=== PATIENT | female | born 1955 | race Hispanic/Latino ===

== ENCOUNTER 2016-07-27 06:05 | Emergency (ER) | payer OTHER ==
[2016-07-27] MEDS ORDERED: IPRATROPIUM 0.5MG/ALBUTEROL 2.5MG INH SOL UD 3ML (DUONEB)(J7620) As Ordered ONE (07:45)
--- NOTE | 2016-07-27 08:13 | REP ---
Chest x-ray: Two views. History: Cough and shortness of breath. Comparison study May 26, 2014. Findings: The heart is mildly enlarged unchanged from the comparison study. Cardiothoracic ratio measures 15.7 cm over 28.7 cm. The aorta is somewhat tortuous. Pulmonary vasculature is not increased. Pleural angles are sharp. There are degenerative changes in the thoracic spine. No infiltrate is seen. Impression: Mild cardiomegaly unchanged. Otherwise no acute disease. Signed by Nabil Bird MD 07/27/2016 08:47 A
--- NOTE | 2016-07-27 08:18 | EDDOCDS ---
Physician Documentation [facility] Name: Lety Mederos Age: 60 yrs Sex: Female : 1955 Arrival Date: 07/27/2016 Time: 06:05 Bed I4 / M4 Private MD: Disposition: 07/27/16 08:08 Discharged to Home/Self Care. Impression: Acute upper respiratory infection, unspecified, Shortness of breath, Cough. - Condition is Stable. - Discharge Instructions: Shortness of Breath, Upper Respiratory Infection, Adult, Cough, Adult, Wimt-rn-Yuke. - Prescriptions for Iophen C- NR 10-100 mg/5 mL Oral liquid - take 10 milliliter by ORAL route at bedtime As needed may cause drowiness. only take at bedtime.; 120 milliliter. Zithromax Z- Steve 250 mg Oral Tablet - take 1 tablet by ORAL route as directed for 5 days Day 1- take two tablets once. Day 2, 3, 4 , 5 take one tablet once daily.; 6 tablet. benzonatate 200 mg Oral Capsule - take 1 capsule by ORAL route 3 times per day As needed do not chew; 30 capsule. - Medication Reconciliation, Local Pharmacy Hours form. - Follow up: Emergency Department; When: As needed; Reason: Worsening of conditions. Follow up: Private Physician; When: 2 - 3 days; Reason: Wound/Symptom Recheck, Recheck today's complaints, Continuance of care. - Problem is new. - Symptoms have improved. Historical: - Allergies: PENICILLINS (Rash); - PMHx: Diabetes - NIDDM: controlled; Hypercholesterolemia; - PSHx: Carpal Tunnel Repair- Bilateral; brain surgery; - Social history: Smoking status: Patient states was never smoker of tobacco. No barriers to communication noted, The patient speaks fluent Slovenian, Speaks appropriately for age. - Family history: Not pertinent. - : The pt / caregiver states he / she is not on anticoagulants. Home medication list is obtained from the patient. - Exposure Risk Screening:: None identified. Vital Signs: 07/27 06:27 BP 160 / 97; Pulse 90; Resp 16; Temp 98.8(T); Pulse Ox 95% on R/A; Weight 88.45 kg / cz 195 lbs; Height 5 ft. 1 in. (154.94 cm); 08:15 BP 136 / 86; Pulse 92; Resp 18; Temp 98.6(O); Pulse Ox 95% on R/A; Pain 7/10; kr3 06:27 Body Mass Index 36.84 (88.45 kg, 154.94 cm) cz MDM: 07:22 Call Respiratory ordered. dt4 07:22 Albuterol-Ipratropium 3 ml Inhalation once ordered. dt4 07:22 Call Respiratory complete. kr3 07:23 Chest, 2 View (pa\E\lat) Ordered. EDMS 07:24 Financial registration complete. lg 07:49 [facility] Payment Agreement was scanned into [employer] and attached to record. lg Administered Medications: 07:47 Drug: Albuterol-Ipratropium 3 ml [ipratropium-albuterol 0.5 mg-3 mg(2.5 mg base)/3 mL kt1 nebulization soln (3 mL)] Route: Inhalation; 07:56 Follow up: Response: Nebulizer completed kt1 Signatures: Dispatcher [employer] EDMS Jimi Vargas RN RN Conor Huynh, Chris Reg lg Marybel Waite,RN RN kr3 Dominique Fox, PALuisC PA-C dt4 Charissa Shahid kt1 The chart was reviewed and I authenticate all verbal orders and agree with the evaluation and treatment provided.Attachments: 07:49 [facility] Payment Agreement lg MTDD
--- NOTE | 2016-07-27 08:18 | EDDOCDS ---
Nurse's Notes [facility] Name: Lety Mederos Age: 60 yrs Sex: Female : 1955 Arrival Date: 07/27/2016 Time: 06:05 Bed I4 / M4 Private MD: Diagnosis: Acute upper respiratory infection, unspecified;Shortness of breath;Cough Presentation: 07/27 06:21 Presenting complaint: Patient states: has been ill with URI symptoms since [facility] fever cough URI symptoms bilateral earaches, coughing up blood. Adult Sepsis Screening: The patient does not have new or worsening altered mentation. Patient's respiratory rate is less than 22. Systolic blood pressure is greater than 100. Patient has a qSOFA score of 0- Negative Sepsis Screen. Suicide/Homicide risk assessment- the patient denies having any suicidal and/or homicidal ideations and does not present with any other emotional, behavioral or mental health complaints. Status: Patient is not a student support services director or dependent. Transition of care: patient was not received from another setting of care. 06:21 Acuity: MICKIE Level 3 cz 06:21 Method Of Arrival: Walkin/Carried/Asstd cz Triage Assessment: 06:27 General: Appears uncomfortable. Pain: Location: chest Pain currently is 6 out of 10 on cz a pain scale. Pt Declines HIV testing. Historical: - Allergies: PENICILLINS (Rash); - PMHx: Diabetes - NIDDM: controlled; Hypercholesterolemia; - PSHx: Carpal Tunnel Repair- Bilateral; brain surgery; - Social history: Smoking status: Patient states was never smoker of tobacco. No barriers to communication noted, The patient speaks fluent Faroese, Speaks appropriately for age. - Family history: Not pertinent. - : The pt / caregiver states he / she is not on anticoagulants. Home medication list is obtained from the patient. - Exposure Risk Screening:: None identified. Screenin:16 Screening information is obtained from the patient. Fall risk: No risks identified. kr3 Assistance ADL's: requires no assistance with activities of daily living. Abuse/DV Screen: The patient / caregiver reports he/she is: not in a situation that causes fear, pain or injury. Nutritional screening: No deficits noted. Advance Directives: Currently, there is no health care proxy. home support is adequate. Assessment: 07:14 General: Appears comfortable, Behavior is appropriate for age, cooperative. Pain: kr3 Location: all over body. Neurological: Level of Consciousness is awake, alert. EENT: Reports ear pain and throat pain. Respiratory: Respiratory effort is even, unlabored, Breath sounds are coarse bilaterally. Reports cough that is pain with cough pain with respiration. Derm: Skin is normal. 08:16 Reassessment: Patient states symptoms have not improved. Pain: Location: chest Pain kr3 currently is 7 out of 10 on a pain scale. Quality of pain is described as tightness. Respiratory: Airway is patent Respiratory effort is even. Derm: Skin is normal. Vital Signs: 06:27 BP 160 / 97; Pulse 90; Resp 16; Temp 98.8(T); Pulse Ox 95% on R/A; Weight 88.45 kg; cz Height 5 ft. 1 in. (154.94 cm); 08:15 BP 136 / 86; Pulse 92; Resp 18; Temp 98.6(O); Pulse Ox 95% on R/A; Pain 7/10; kr3 06:27 Body Mass Index 36.84 (88.45 kg, 154.94 cm) cz Vitals: 06:27 Log In Time: July 27, 2016 at 06:07. cz ED Course: 06:06 Patient visited by Fanny Ware Reg. hs2 06:06 Patient moved to Waiting hs2 06:26 Triage Initiated cz 06:29 Patient moved to Pre RCE cz 07:03 Pt greeted and oriented to ED. Patient advised of names of staff involved in care, jam1 location of call cortés, wait times and NPO status. Patient has correct armband on for positive identification. Bed in low position. Call light in reach. Side rails up X 1. Adult w/ patient. Door closed. 07:04 Patient moved to I4 / M4 dls 07:12 Dominique Fox PA-C is PHCP. dt4 07:12 Yaima Rea MD is Attending Physician. dt4 07:12 Patient visited by Dominique Fox PA-C. dt4 07:15 The patient / caregiver is instructed regarding the plan of care and ED course. kr3 Accompanied by Family Member, Patient has correct armband on for positive identification. Placed in gown. Call light in reach. 07:49 [facility] Payment Agreement was scanned into [employer] and attached to record. lg 08:15 No IV's were initiated during this patient's visit. No procedures done that require kr3 assistance. Administered Medications: 07:47 Drug: Albuterol-Ipratropium 3 ml [ipratropium-albuterol 0.5 mg-3 mg(2.5 mg base)/3 mL kt1 nebulization soln (3 mL)] Route: Inhalation; 07:56 Follow up: Response: Nebulizer completed kt1 RT: 07:49 Initial Med Neb Given as ordered Patient was instructed and evaluated on procedure. kt1 Respiratory: Breath sounds are diminished bilaterally. Order Results: There are currently no results for this order. Outcome: 08:08 Discharge ordered by Provider. dt4 08:15 Discharge Assessment: patient administered narcotics - no. The following High Risk kr3 Discharge criteria are identified: None. Discharged to home ambulatory, with family. Condition: stable. Discharge instructions given to patient, Instructed on discharge instructions, follow up and referral plans. medication usage, no driving heavy equipment, no drinking with medication, Demonstrated understanding of instructions, medications, Pt was receptive of discharge instructions/ teaching. Prescriptions given X 3. No special radiology studies were completed. Property sent home with patient. 08:17 Patient left the ED. kr3 Signatures: Maddy Escoto RN RN Jimi Morrison RN RN cz Catalina Busby, CHAIR INSPECTOR AND LEVELER CHAIR INSPECTOR AND LEVELER jam1 Conor Camarena, Reg Reg lg Charissa Shahid kt1 Marybel Waite RN RN kr3 Dominique Fox, PALoi PALoi dt4 Fanny Ware, Reg Reg hs2 MTDD
--- NOTE | 2016-07-30 10:39 | EDDOCDS ---
Physician Documentation [facility] Name: Lety Mederos Age: 60 yrs Sex: Female : 1955 Arrival Date: 07/27/2016 Time: 06:05 Bed I4 / M4 Private MD: Disposition: 07/27/16 08:08 Discharged to Home/Self Care. Impression: Acute upper respiratory infection, unspecified, Shortness of breath, Cough. - Condition is Stable. - Discharge Instructions: Shortness of Breath, Upper Respiratory Infection, Adult, Cough, Adult, Kauv-[id number]. - Prescriptions for Iophen C- NR 10-100 mg/5 mL Oral liquid - take 10 milliliter by ORAL route at bedtime As needed may cause drowiness. only take at bedtime.; 120 milliliter. Zithromax Z- Steve 250 mg Oral Tablet - take 1 tablet by ORAL route as directed for 5 days Day 1- take two tablets once. Day 2, 3, 4 , 5 take one tablet once daily.; 6 tablet. benzonatate 200 mg Oral Capsule - take 1 capsule by ORAL route 3 times per day As needed do not chew; 30 capsule. - Medication Reconciliation, Local Pharmacy Hours form. - Follow up: Emergency Department; When: As needed; Reason: Worsening of conditions. Follow up: Private Physician; When: 2 - 3 days; Reason: Wound/Symptom Recheck, Recheck today's complaints, Continuance of care. - Problem is new. - Symptoms have improved. Historical: - Allergies: PENICILLINS (Rash); - PMHx: Diabetes - NIDDM: controlled; Hypercholesterolemia; - PSHx: Carpal Tunnel Repair- Bilateral; brain surgery; - Social history: Smoking status: Patient states was never smoker of tobacco. No barriers to communication noted, The patient speaks fluent Turkish, Speaks appropriately for age. - Family history: Not pertinent. - : The pt / caregiver states he / she is not on anticoagulants. Home medication list is obtained from the patient. - Exposure Risk Screening:: None identified. Vital Signs: 07/27 06:27 BP 160 / 97; Pulse 90; Resp 16; Temp 98.8(T); Pulse Ox 95% on R/A; Weight 88.45 kg / cz 195 lbs; Height 5 ft. 1 in. (154.94 cm); 08:15 BP 136 / 86; Pulse 92; Resp 18; Temp 98.6(O); Pulse Ox 95% on R/A; Pain 7/10; kr3 06:27 Body Mass Index 36.84 (88.45 kg, 154.94 cm) cz MDM: 07:22 Call Respiratory ordered. dt4 07:22 Albuterol-Ipratropium 3 ml Inhalation once ordered. dt4 07:22 Call Respiratory complete. kr3 07:23 Chest, 2 View (pa\E\lat) Ordered. EDMS 07:24 Financial registration complete. lg 07:49 [facility] Payment Agreement was scanned into [employer] and attached to record. lg 11:43 T-Sheet-- Draft Copy was scanned into [employer] and attached to record. se Administered Medications: 07:47 Drug: Albuterol-Ipratropium 3 ml [ipratropium-albuterol 0.5 mg-3 mg(2.5 mg base)/3 mL kt1 nebulization soln (3 mL)] Route: Inhalation; 07:56 Follow up: Response: Nebulizer completed kt1 Signatures: Dispatcher [employer] EDMS Jimi Vargas RN RN cz Conor Camarena, Chris Reg lg Marybel Waite,RN RN kr3 Dominique Fox, Magda Catherine PA-C, Kristin kt1 The chart was reviewed and I authenticate all verbal orders and agree with the evaluation and treatment provided.Attachments: 07:49 [facility] Payment Agreement lg 11:43 T-Sheet-- Draft Copy [facility] Chart Complete MTDD
--- NOTE | 2016-07-30 10:39 | EDDOCDS ---
Physician Documentation [facility] Name: Lety Mederos Age: 60 yrs Sex: Female : 1955 Arrival Date: 07/27/2016 Time: 06:05 Bed I4 / M4 Private MD: Disposition: 07/27/16 08:08 Discharged to Home/Self Care. Impression: Acute upper respiratory infection, unspecified, Shortness of breath, Cough. - Condition is Stable. - Discharge Instructions: Shortness of Breath, Upper Respiratory Infection, Adult, Cough, Adult, Uroo-op-Ozor. - Prescriptions for Iophen C- NR 10-100 mg/5 mL Oral liquid - take 10 milliliter by ORAL route at bedtime As needed may cause drowiness. only take at bedtime.; 120 milliliter. Zithromax Z- Steve 250 mg Oral Tablet - take 1 tablet by ORAL route as directed for 5 days Day 1- take two tablets once. Day 2, 3, 4 , 5 take one tablet once daily.; 6 tablet. benzonatate 200 mg Oral Capsule - take 1 capsule by ORAL route 3 times per day As needed do not chew; 30 capsule. - Medication Reconciliation, Local Pharmacy Hours form. - Follow up: Emergency Department; When: As needed; Reason: Worsening of conditions. Follow up: Private Physician; When: 2 - 3 days; Reason: Wound/Symptom Recheck, Recheck today's complaints, Continuance of care. - Problem is new. - Symptoms have improved. Historical: - Allergies: PENICILLINS (Rash); - PMHx: Diabetes - NIDDM: controlled; Hypercholesterolemia; - PSHx: Carpal Tunnel Repair- Bilateral; brain surgery; - Social history: Smoking status: Patient states was never smoker of tobacco. No barriers to communication noted, The patient speaks fluent Romansh, Speaks appropriately for age. - Family history: Not pertinent. - : The pt / caregiver states he / she is not on anticoagulants. Home medication list is obtained from the patient. - Exposure Risk Screening:: None identified. Vital Signs: 07/27 06:27 BP 160 / 97; Pulse 90; Resp 16; Temp 98.8(T); Pulse Ox 95% on R/A; Weight 88.45 kg / cz 195 lbs; Height 5 ft. 1 in. (154.94 cm); 08:15 BP 136 / 86; Pulse 92; Resp 18; Temp 98.6(O); Pulse Ox 95% on R/A; Pain 7/10; kr3 06:27 Body Mass Index 36.84 (88.45 kg, 154.94 cm) cz MDM: 07:22 Call Respiratory ordered. dt4 07:22 Albuterol-Ipratropium 3 ml Inhalation once ordered. dt4 07:22 Call Respiratory complete. kr3 07:23 Chest, 2 View (pa\E\lat) Ordered. EDMS 07:24 Financial registration complete. lg 07:49 [facility] Payment Agreement was scanned into [employer] and attached to record. lg 11:43 T-Sheet-- Draft Copy was scanned into [employer] and attached to record. se Administered Medications: 07:47 Drug: Albuterol-Ipratropium 3 ml [ipratropium-albuterol 0.5 mg-3 mg(2.5 mg base)/3 mL kt1 nebulization soln (3 mL)] Route: Inhalation; 07:56 Follow up: Response: Nebulizer completed kt1 Signatures: Dispatcher [employer] EDMS Jimi Vargas RN RN cz Conor Camarena, Chris Reg lg Marybel Waite,RN RN kr3 Dominique Fox, Magda Catherine PA-C, Kristin kt1 The chart was reviewed and I authenticate all verbal orders and agree with the evaluation and treatment provided.Attachments: 07:49 [facility] Payment Agreement lg 11:43 T-Sheet-- Draft Copy [facility] Chart Complete MTDD
--- NOTE | 2016-07-30 10:39 | EDDOCDS ---
Nurse's Notes [facility] Name: Lety Mederos Age: 60 yrs Sex: Female : 1955 Arrival Date: 07/27/2016 Time: 06:05 Bed I4 / M4 Private MD: Diagnosis: Acute upper respiratory infection, unspecified;Shortness of breath;Cough Presentation: 07/27 06:21 Presenting complaint: Patient states: has been ill with URI symptoms since [facility] fever cough URI symptoms bilateral earaches, coughing up blood. Adult Sepsis Screening: The patient does not have new or worsening altered mentation. Patient's respiratory rate is less than 22. Systolic blood pressure is greater than 100. Patient has a qSOFA score of 0- Negative Sepsis Screen. Suicide/Homicide risk assessment- the patient denies having any suicidal and/or homicidal ideations and does not present with any other emotional, behavioral or mental health complaints. Status: Patient is not a equipment services associate or dependent. Transition of care: patient was not received from another setting of care. 06:21 Acuity: MICKIE Level 3 cz 06:21 Method Of Arrival: Walkin/Carried/Asstd cz Triage Assessment: 06:27 General: Appears uncomfortable. Pain: Location: chest Pain currently is 6 out of 10 on cz a pain scale. Pt Declines HIV testing. Historical: - Allergies: PENICILLINS (Rash); - PMHx: Diabetes - NIDDM: controlled; Hypercholesterolemia; - PSHx: Carpal Tunnel Repair- Bilateral; brain surgery; - Social history: Smoking status: Patient states was never smoker of tobacco. No barriers to communication noted, The patient speaks fluent New Zealander, Speaks appropriately for age. - Family history: Not pertinent. - : The pt / caregiver states he / she is not on anticoagulants. Home medication list is obtained from the patient. - Exposure Risk Screening:: None identified. Screenin:16 Screening information is obtained from the patient. Fall risk: No risks identified. kr3 Assistance ADL's: requires no assistance with activities of daily living. Abuse/DV Screen: The patient / caregiver reports he/she is: not in a situation that causes fear, pain or injury. Nutritional screening: No deficits noted. Advance Directives: Currently, there is no health care proxy. home support is adequate. Assessment: 07:14 General: Appears comfortable, Behavior is appropriate for age, cooperative. Pain: kr3 Location: all over body. Neurological: Level of Consciousness is awake, alert. EENT: Reports ear pain and throat pain. Respiratory: Respiratory effort is even, unlabored, Breath sounds are coarse bilaterally. Reports cough that is pain with cough pain with respiration. Derm: Skin is normal. 08:16 Reassessment: Patient states symptoms have not improved. Pain: Location: chest Pain kr3 currently is 7 out of 10 on a pain scale. Quality of pain is described as tightness. Respiratory: Airway is patent Respiratory effort is even. Derm: Skin is normal. Vital Signs: 06:27 BP 160 / 97; Pulse 90; Resp 16; Temp 98.8(T); Pulse Ox 95% on R/A; Weight 88.45 kg; cz Height 5 ft. 1 in. (154.94 cm); 08:15 BP 136 / 86; Pulse 92; Resp 18; Temp 98.6(O); Pulse Ox 95% on R/A; Pain 7/10; kr3 06:27 Body Mass Index 36.84 (88.45 kg, 154.94 cm) cz Vitals: 06:27 Log In Time: July 27, 2016 at 06:07. cz ED Course: 06:06 Patient visited by Fanny Ware Reg. hs2 06:06 Patient moved to Waiting hs2 06:26 Triage Initiated cz 06:29 Patient moved to Pre RCE cz 07:03 Pt greeted and oriented to ED. Patient advised of names of staff involved in care, jam1 location of call cortés, wait times and NPO status. Patient has correct armband on for positive identification. Bed in low position. Call light in reach. Side rails up X 1. Adult w/ patient. Door closed. 07:04 Patient moved to I4 / M4 dls 07:12 Dominique Fox PA-C is PHCP. dt4 07:12 Yaima Rea MD is Attending Physician. dt4 07:12 Patient visited by Dominique Fox PA-C. dt4 07:15 The patient / caregiver is instructed regarding the plan of care and ED course. kr3 Accompanied by Family Member, Patient has correct armband on for positive identification. Placed in gown. Call light in reach. 07:49 [facility] Payment Agreement was scanned into [employer] and attached to record. 08:15 No IV's were initiated during this patient's visit. No procedures done that require kr3 assistance. 08:41 Chest, 2 View (pa\E\lat) Returned. EDMS 11:43 T-Sheet-- Draft Copy was scanned into [employer] and attached to record. seh Administered Medications: 07:47 Drug: Albuterol-Ipratropium 3 ml [ipratropium-albuterol 0.5 mg-3 mg(2.5 mg base)/3 mL kt1 nebulization soln (3 mL)] Route: Inhalation; 07:56 Follow up: Response: Nebulizer completed kt1 RT: 07:49 Initial Med Neb Given as ordered Patient was instructed and evaluated on procedure. kt1 Respiratory: Breath sounds are diminished bilaterally. Order Results: Radiology Order: Chest, 2 View (pa\E\lat) Test: Chest, 2 View (pa\E\lat) REASON FOR EXAMINATION: Cough;Shortness of Breath; Chest x-ray: Two views.; ; History: Cough and shortness of breath.; ; Comparison study May 26, 2014.; ; Findings: The heart is mildly enlarged unchanged from the comparison study.; Cardiothoracic ratio measures 15.7 cm over 28.7 cm. The aorta is somewhat; tortuous. Pulmonary vasculature is not increased. Pleural angles are sharp.; There are degenerative changes in the thoracic spine. No infiltrate is seen.; ; Impression:; ; Mild cardiomegaly unchanged. Otherwise no acute disease.; ; ; Signed by; Nabil Bird MD 07/27/2016 08:47 A; Outcome: 08:08 Discharge ordered by Provider. dt4 08:15 Discharge Assessment: patient administered narcotics - no. The following High Risk kr3 Discharge criteria are identified: None. Discharged to home ambulatory, with family. Condition: stable. Discharge instructions given to patient, Instructed on discharge instructions, follow up and referral plans. medication usage, no driving heavy equipment, no drinking with medication, Demonstrated understanding of instructions, medications, Pt was receptive of discharge instructions/ teaching. Prescriptions given X 3. No special radiology studies were completed. Property sent home with patient. 08:17 Patient left the ED. kr3 Signatures: Dispatcher [employer] EDMS Maddy Escoto RN RN Jimi Morrison, RN RN katelin Busby, Catalina, BAKER APPRENTICE BAKER APPRENTICE jam1 Conor Camarena, Reg Reg lg Charissa Shahid kt1 Marybel Waite,KIMBERLI RN kr3 Dominique Fox, FRANCA PALoi rich4 Fanny Ware, Reg Reg hs2 Magda Lewis Chart Complete MTDD
== END 2016-07-27 08:11 | disposition home or self-care (01) ==
LOC: M ED 06:05
DX: J06.9 Acute upper respiratory infection, unspecified (principal); I51.7 Cardiomegaly; E11.9 Type 2 diabetes mellitus without complications; E78.00 Pure hypercholesterolemia, unspecified; Z88.0 Allergy status to penicillin

== ENCOUNTER → 2017-12-25 | Outpatient (CLI) | payer OTHER | LOC: M RAD 06:47 | DX: R30.0 Dysuria (principal); R93.2 Abnormal findings on diagnostic imaging of liver and biliary tract | CPT/HCPCS: 74176 ==

== ENCOUNTER 2018-08-13 10:17 | Emergency (ER) | payer OTHER ==
[~2018-08-13] VITALS: Ht 154.9 cm; Wt 88.6 kg
[2018-08-13] MEDS ORDERED: VITA50005 (10:34)
[2018-08-13] MEDS ORDERED: GABA-845 PO (10:34)
[2018-08-13] MEDS ORDERED: IBUP-1022 PO (10:34)
[2018-08-13] MEDS ORDERED: ATOR40TA75 (10:34)
[2018-08-13] MEDS ORDERED: LISI2.5T5 (10:34)
[2018-08-13 14:10] LABS: BASO # 0.1 10^3/uL (0.0-0.2); BASO % 0.6 % (0.0-1.0); EOS # 0.1 10^3/uL (0.0-0.50); HEMATOCRIT 42.6 % (36.0-47.0); HEMOGLOBIN 14.4 g/dl (12.0-15.5); LYMPH % 35.5 % (24.0-44.0); MEAN CORPUSCULAR HEMOGLOBIN 29.7 pg (27.0-33.0); MEAN CORPUSCULAR HGB CONC 33.8 g/dl (32.0-36.5); MEAN CORPUSCULAR VOLUME 87.8 fl (80.0-96.0); MONO % 11.5 % (0.0-5.0); NEUTROPHILS # 4.3 10^3/uL (1.8-7.7); NEUTROPHILS % 50.9 % (36.0-66.0); PLATELET COUNT, AUTOMATED 324 10^3/uL (150-450); RED BLOOD COUNT 4.85 10^6/uL (4.00-5.40); WHITE BLOOD COUNT 8.4 10^3/uL (4.0-10.0)
--- NOTE | 2018-08-13 14:17 | REP ---
CT cervical spine without contrast HISTORY: Head injury COMPARISON: None There is no acute fracture or subluxation. Disc bulges are present at the C3-4 through C6-7 levels. There is minimal narrowing of the spinal canal. Uncinate process and facet hypertrophy are present on the right at the C2-3 level. Uncinate process hypertrophy is present on the right at the C5-6 level. These findings produce minimal narrowing of the neural foramina. The remaining neural foramina are patent. The intervertebral discs are normal in height. IMPRESSION: 1. There is no acute fracture or subluxation 2. There is cervical spondylosis at the C2-3 through C6-7 levels. Electronically Signed by Wilfredo Maguire MD 08/13/2018 02:08 P
--- NOTE | 2018-08-13 14:18 | REP ---
CT Head without contrast HISTORY: Head injury COMPARISON: 05/26/2014 Decreased attenuation is present in the lateral right cerebellum. This represents encephalomalacia. There is no intraparenchymal hemorrhage, acute infarct, mass or midline shift. The ventricular system is normal in appearance. There is no extra cerebral collection. There is no fracture. The patient is status post right temporal craniotomy. The visualized sinuses are clear. IMPRESSION: Right cerebellar encephalomalacia. Electronically Signed by Wilfredo Maguire MD 08/13/2018 02:09 P
[2018-08-13] MEDS ORDERED: KETOROLAC 60 MG/2 ML VIAL (J1885) IM ONE (14:30)
[2018-08-13 14:34] LABS: INR 0.92; PROTHROMBIN TIME 12.5 SECONDS (12.1-14.4)
[2018-08-13 14:35] LABS: BLOOD UREA NITROGEN 20 MG/DL (7-18); CALCIUM LEVEL 9.2 MG/DL (8.8-10.2); CARBON DIOXIDE LEVEL 25 MEQ/L (21-32); CHLORIDE LEVEL 108 MEQ/L (98-107); CREATININE FOR GFR 0.67 MG/DL (0.55-1.30); GLOMERULAR FILTRATION RATE > 60.0 (>45); GLUCOSE, FASTING 101 MG/DL (70-100); PARTIAL THROMBOPLASTIN TIME 32.5 SECONDS (25.4-37.6); SODIUM LEVEL 141 MEQ/L (136-145)
[2018-08-13] MEDS ORDERED: KETOROLAC 30 MG/ML VIAL (J1885) IV ONE (14:45)
[2018-08-13] MEDS ORDERED: VOLT1GEL15 TOP (15:17)
[2018-08-13] MEDS ORDERED: ROBA500T PO (15:17)
[2018-08-13] MEDS ORDERED: KETO10TAB PO (15:17)
[2018-08-13 15:28] VITALS: BP 151/82
== END 2018-08-13 15:34 | disposition home or self-care (01) ==
LOC: M ED 10:17
DX: G44.209 Tension-type headache, unspecified, not intractable (principal); M62.838 Other muscle spasm; M47.812 Spondylosis without myelopathy or radiculopathy, cervical region; G93.89 Other specified disorders of brain; E11.9 Type 2 diabetes mellitus without complications; I10 Essential (primary) hypertension; Z86.011 Personal history of benign neoplasm of the brain; Z88.0 Allergy status to penicillin; Z79.899 Other long term (current) drug therapy
CPT/HCPCS: 70450; 72125; 80048; 85025; 85610; 85730; 96374; 99284; J1885

== ENCOUNTER → 2018-10-06 | Outpatient (REF) | payer OTHER ==
[~2018-10-06] MED LIST: ATOR40TA75; GABA-845 PO; IBUP-1022 PO; KETO10TAB PO; LISI2.5T5; ROBA500T PO; VITA50005; VOLT1GEL15 TOP
== END ==
LOC: M SFHCLERA 12:22
PROVIDERS: ATTEND Nurse Practitioner Family
DX: R53.81 Other malaise (principal)

== ENCOUNTER → 2018-11-03 | Outpatient (REF) | payer OTHER ==
[~2018-11-03] MED LIST changes: +LISI-1046; -LISI2.5T5
== END ==
LOC: M SFHCLERA 18:16
PROVIDERS: ATTEND Nurse Practitioner Family
DX: R30.0 Dysuria (principal)

== ENCOUNTER 2018-12-13 09:27 | Emergency (ER) | payer OTHER ==
[~2018-12-13] VITALS: Ht 154.9 cm; Wt 90.0 kg
[2018-12-13 09:29] VITALS: BP 151/70
[2018-12-13] MEDS ORDERED: PERCOCET 5MG/325MG TAB PO ONE (10:00)
[2018-12-13] MEDS ORDERED: CYCLOBENZAPRINE 10 MG TAB PO ONE (10:00)
[2018-12-13] MEDS ORDERED: ONDANSETRON 4 MG ORAL DISINTEGRATING TAB (Q0162 PER 1MG) PO ONE (10:00)
[2018-12-13] MEDS ORDERED: NORC1TAB7 PO (10:12)
[2018-12-13] MEDS ORDERED: CYCL5TAB PO (10:13)
[2018-12-13] MEDS ORDERED: ZOFR4TAB16 PO (10:15)
[2018-12-13] MEDS ORDERED: PROT1TAB2 PO (10:15)
== END 2018-12-13 10:30 | disposition home or self-care (01) ==
LOC: M ED 09:27
DX: M54.9 Dorsalgia, unspecified (principal); M62.830 Muscle spasm of back; X50.9XXA Other and unspecified overexertion or strenuous movements or postures, initial encounter; Y92.099 Unspecified place in other non-institutional residence as the place of occurrence of the external cause; Y93.89 Activity, other specified; Y99.9 Unspecified external cause status; E11.9 Type 2 diabetes mellitus without complications; I10 Essential (primary) hypertension; Z79.899 Other long term (current) drug therapy; Z88.0 Allergy status to penicillin
CPT/HCPCS: 99283; Q0162